=== PATIENT | female | born 1995 | race Caucasian/White ===

== ENCOUNTER 2022-07-04 10:05 | Emergency (ER) | payer OTHER ==
[~2022-07-04] VITALS: Ht 172.7 cm; Wt 109.1 kg
[2022-07-04 10:10] VITALS: BP 127/66
[2022-07-04] MEDS ORDERED: IBUPROFEN 600 MG TABLET PO ONE (10:30)
[2022-07-04] MEDS ORDERED: ACETAMINOPHEN 325 MG TABLET PO ONE (10:30)
[2022-07-04 10:33] LABS: COVID AG,FIA SOURCE NASAL SWAB
[2022-07-04 10:47] LABS: RAPID GROUP A STREP NEGATIVE (NEGATIVE)
[2022-07-04 10:54] LABS: INFLUENZA TYPE A NEGATIVE FOR TYPE A (NEGATIVE); INFLUENZA TYPE B NEGATIVE FOR TYPE B (NEGATIVE)
== END 2022-07-04 12:00 | disposition home or self-care (01) ==
LOC: EMS 10:05
DX: J02.8 Acute pharyngitis due to other specified organisms (principal); Z88.0 Allergy status to penicillin; Z20.822 Contact with and (suspected) exposure to COVID-19
CPT/HCPCS: 87430; 87804; 99283